=== PATIENT | male | born 1995 | race Caucasian/White ===

== ENCOUNTER 2017-04-11 11:52 | Outpatient (CLI) ==
[2013-09-30 20:48] VITALS: BMI 21.9
--- NOTE | 2017-04-11 12:33 | DI ---
Exam: Chest two-view HISTORY: Short of breath. FINDINGS: Two views of the chest demonstrate moderately expanded lungs with no evidence of pneumoni a or edema. The heart is normal in size and configuration. The pulmonary vasculature is not conges malena. The skeletal structures are intact. IMPRESSION: No acute cardiopulmonary disease.
--- NOTE | 2017-04-11 12:33 | DI ---
EXAM: Cervical spine radiographs. HISTORY: Neck pain. COMPARISON: None available. TECHNIQUE: Frontal, lateral, swimmers and odontoid views. FINDINGS: The normal curvature and alignment are maintained. Vertebral body and intervertebral dis c heights are normal. No fracture or subluxation is seen. Prevertebral soft tissues are unremarkab le. IMPRESSION: No acute abnormality of the cervical spine.
== END 2017-04-11 11:53 | disposition home or self-care (01) ==
LOC: RAD 11:52
PROVIDERS: ATTEND Nurse Practitioner
DX: M54.2 Cervicalgia (principal); R06.02 Shortness of breath

== ENCOUNTER 2017-05-15 07:18 | Outpatient (CLI) ==
[2013-09-30 20:48] VITALS: BMI 21.9
[2017-05-15 07:46] LABS: BASOPHILS % (AUTO) 0.4 % (0.0-3.0); EOSINOPHILS # (AUTO) 0.2 K/ul (0.0-0.7); EOSINOPHILS % (AUTO) 3.1 % (0.0-7.0); HEMATOCRIT 41.5 % (42.0-52.0); HEMOGLOBIN 14.9 g/dl (14.0-18.0); LYMPHOCYTES # (AUTO) 1.4 K/uL (0.60-3.4); LYMPHOCYTES % (AUTO) 26.5 (10.0-50.0); MEAN CORPUSCULAR HEMOGLOBIN 30.9 pg (27.0-31.0); MEAN CORPUSCULAR HGB CONC 35.9 (31.8-35.4); MEAN CORPUSCULAR VOLUME 86.1 fl (80.0-94.0); MONOCYTES # (AUTO) 0.4 K/uL (0.4-2.0); MONOCYTES % (AUTO) 7.9 (0-10); NEUTROPHILS # (AUTO) 3.4 K/ul (2.0-6.9); NEUTROPHILS % (AUTO) 62.1; PLATELET COUNT 216 10^3/uL (140-440); RED BLOOD COUNT 4.82 10^6/ul (4.70-6.10); WHITE BLOOD COUNT 5.43 K/ul (4.2-10.2)
[2017-05-15 07:47] LABS: ADD URINE MICROSCOPIC YES; BILIRUBIN,URINE 1+ (NEGATIVE); KETONES,URINE Negative (NEGATIVE); LEUKOCYTE ESTERASE ,URINE Negative (NEGATIVE); NITRITE,URINE Negative (NEGATIVE); PH,URINE 6.5 (5-9); PROTEIN,URINE Trace (NEGATIVE); URINE, BLOOD Negative (NEGATIVE)
[2017-05-15 08:04] LABS: BACTERIA,URINE 1+ (NOT PRESENT)
[2017-05-15 08:24] LABS: ALBUMIN/GLOBULIN RATIO 1.14; ANION GAP 12.2; BILIRUBIN,DIRECT 0.23 mg/dL (0.00-0.30); BILIRUBIN,TOTAL 0.54 mg/dL (0.60-1.40); BUN/CREATININE RATIO 10.97; CALCIUM 10.2 mg/dL (8.2-10.2); CHOL/HDL RATIO 3.4 (4.5-6.4); CREATININE 0.82 mg/dL (0.60-1.10); PHOSPHORUS 2.9 mg/dL (2.5-4.9); POTASSIUM 4.2 mmol/L (3.5-5.1); TOTAL PROTEIN 7.5 g/dL (6.4-8.2)
[2017-05-15 10:03] LABS: GLUCOSE 30 MINUTE 117 mg/dL (70-121)
[2017-05-15 10:19] LABS: GLUCOSE 30 MINUTE URINE NEGATIVE (NEGATIVE)
[2017-05-15 10:20] LABS: GLUCOSE,FASTING 97 mg/dL (70-121)
[2017-05-15 10:21] LABS: GTT FASTING URINE TRACE (NEGATIVE)
== END 2017-05-15 07:19 | disposition home or self-care (01) ==
LOC: LAB 07:18
PROVIDERS: ATTEND Nurse Practitioner
DX: E16.2 Hypoglycemia, unspecified (principal); M54.2 Cervicalgia; R00.2 Palpitations; R06.02 Shortness of breath; R55 Syncope and collapse
CPT/HCPCS: 36415; 80053; 80061; 81001; 82248; 82951; 84100; 84443; 85025